=== PATIENT | female | born 1950 | race Caucasian/White ===

== ENCOUNTER → 2017-01-02 | Outpatient (CLI) | payer OTHER | LOC: FIMAGING 10:03 | PROVIDERS: ATTEND Family Medicine Geriatric Medicine | DX: Z13.820 Encounter for screening for osteoporosis (principal); Z78.0 Asymptomatic menopausal state; Z79.890 Hormone replacement therapy | CPT/HCPCS: G0202 ==

== ENCOUNTER → 2017-05-21 | Outpatient (CLI) | payer OTHER | LOC: FIMAGING 08:56 | PROVIDERS: ATTEND Orthopaedic Surgery | DX: Z01.818 Encounter for other preprocedural examination (principal); M17.12 Unilateral primary osteoarthritis, left knee ==

== ENCOUNTER 2017-06-03 09:12 | Observation (INO) | payer OTHER ==
[~2017-06-03 09:12] MED LIST: ROPIVACAINE 0.2% 80 MG, EPINEPHrine 0.2 MG, KETOROLAC TROMETHAMINE 30 MG in SYRINGE 0 ML IU ONE; TRANEXAMIC ACID 3,000 MG in NS 50 ML IRR ONE
--- NOTE | 2017-06-03 09:31 | PDHPUP ---
History & Physical Update H&P update statement: This history and physical update is based on an assessment of the patient which was completed after admission or registration (within 24 hours), but prior to the surgery/procedure. H&P update: H&P reviewed & patient examined, no change in patient's condition since H&P completed
[2017-06-03] MEDS ORDERED: TRANEXAMIC ACID 3,000 MG/50 ML BAG IRR ONE (09:36)
[2017-06-03] MEDS ORDERED: VANCOMYCIN 1 GM VIAL ONE (09:36)
[2017-06-03] MEDS ORDERED: ceFAZolin 2 GM/SWFI 2 GM/20 ML SYR IVP ONE (09:49)
[2017-06-03] MEDS ORDERED: FAMOTIDINE 20 MG TAB PO ONE (09:49)
[2017-06-03] MEDS ORDERED: DEXAMETHASONE 4 MG/ML VIAL IVP ONE (09:49)
[2017-06-03] MEDS ORDERED: ACETAMINOPHEN 325 MG TAB PO ONE (09:49)
[2017-06-03] MEDS ORDERED: LIDOCAINE 1% 2 ML INJ ID PRN (09:50)
[2017-06-03] MEDS ORDERED: LR 1,000 ML IV ONE (09:50)
[2017-06-03] MEDS ORDERED: LIDOCAINE 1% 2 ML INJ ONE (09:57)
[2017-06-03] MEDS ORDERED: PROPOFOL/EMULSION 500 MG/50 ML BOTTLE IV ONE (10:58)
[2017-06-03] MEDS ORDERED: BUPIVACAINE 0.5% 30 ML SDV ONE (10:59)
[2017-06-03] MEDS ORDERED: LIDOCAINE 2% 5 ML SDV ONE (11:00)
[2017-06-03] MEDS ORDERED: MIDAZOLAM 2 MG/2 ML VIAL ONE (11:03)
[2017-06-03] MEDS ORDERED: MIDAZOLAM 2 MG/2 ML VIAL IVP ONE (11:05)
--- NOTE | 2017-06-03 11:06 | PDANEPAE ---
ANE History of Present Illness left knee partial arthroplasty ANE Past Medical History - Cardiovascular History Hx Hypertension: No Hx Arrhythmias: No Hx Chest Pain: No Hx Coronary Artery / Peripheral Vascular Disease: No Hx CHF / Valvular Disease: No Hx Palpitations: No - Pulmonary History Hx COPD: No Hx Asthma/Reactive Airway Disease: No Hx Recent Upper Respiratory Infection: No Hx Oxygen in Use at Home: No Hx Sleep Apnea: No Sleep Apnea Screening Result - Last Documented: Negative - Neurologic History Hx Cerebrovascular Accident: No Hx Seizures: No Hx Dementia: No - Endocrine History Hx Diabetes: No Obesity: no - Renal History Hx Renal Disorders: No - Liver History Hx Hepatic Disorders: No - Neurological & Psychiatric Hx Hx Neurological and Psychiatric Disorders: No - Cancer History Hx Cancer: No - Congenital Disorder History Hx Congenital Disorders: No - GI History Hx Gastrointestinal Disorders: No - Other Health History Other Health History: wears glasses - Chronic Pain History Chronic Pain: Yes (left knee and right ankle) - Surgical History Prior Surgeries: 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 1983 breast reduction. 1988 detached retina repair- left eye. 1992 bilateral neuroma surgery to feet. 2006 hysteroscopy d&c ANE Review of Systems Review of systems is: negative Review of Systems: - Exercise capacity METS (RN): 4 METS ANE Patient History - Allergies Allergies/Adverse Reactions: tetracycline Allergy (Verified 05/04/17 10:13) Vomiting - Home Medications Home medications: home medication list seen and reviewed Home Medications: Estradiol [Estradiol 1 MG (*)] 1 mg PO DAILY 04/27/17 [Last Taken 05/27/17] Gabapentin [Neurontin 300 MG (*)] 300 mg PO DAILY PRN 04/27/17 [Last Taken 06/02 21:00] medroxyPROGESTERone [Provera 2.5 mg (*)] 2.5 mg PO MOFR 04/27/17 [Last Taken ] traZODone [traZODONE 50MG (*)] 75 mg PO HS 04/27/17 [Last Taken 06/02/17 21:00] - NPO status NPO Since - Liquids (Date): 06/03/17 NPO Since - Liquids (Time): 06:00 NPO Since - Solids (Date): 06/02/17 NPO Since - Solids (Time): 18:00 - Smoking Hx Smoking Status: Never smoked - Family Anes Hx Family Hx Anesthesia Complications: none ANE Labs/Vital Signs - Vital Signs Blood Pressure: 129/81 Heart Rate: 51 Respiratory Rate: 18 O2 Sat (%): 98 Height: 170.18 cm Weight: 63.049 kg ANE Physical Exam - Airway Neck exam: FROM Mallampati Score: Class 1 Mouth exam: normal dental/mouth exam - Pulmonary Pulmonary: no respiratory distress - Cardiovascular Cardiovascular: regular rate and rhythym - ASA Status ASA Status: I ANE Anesthesia Plan Anesthesia Plan: spinal Regional Anesthesia: single shot NB, adductor canal FNB
[2017-06-03] MEDS ORDERED: epHEDrine SULFATE 10 MG/ML SYR ONE ×3 (11:57→12:26)
[2017-06-03] MEDS ORDERED: ONDANSETRON DISINTEGRATING 4 MG TAB PO PRN (12:03)
[2017-06-03] MEDS ORDERED: DIPHENOXYLATE/ATROPINE LOMOTIL 1 TAB PO PRN (12:03)
[2017-06-03] MEDS ORDERED: LACTULOSE 20 GM/30 ML UDCUP PO PRN (12:03)
[2017-06-03] MEDS ORDERED: METOCLOPRAMIDE 10 MG/2 ML VIAL IVP PRN (12:03)
[2017-06-03] MEDS ORDERED: BISACODYL 10 MG SUPP PR PRN (12:03)
[2017-06-03] MEDS ORDERED: TEMAZEPAM 15 MG CAP PO PRN (12:03)
[2017-06-03] MEDS ORDERED: PROMETHAZINE HCL 25 MG/ML INJ IVP PRN (12:03)
[2017-06-03] MEDS ORDERED: CYCLOBENZAPRINE 10 MG TAB PO PRN (12:03)
[2017-06-03] MEDS ORDERED: MAGNESIUM HYDROXIDE 30 ML UDCUP PO PRN (12:03)
[2017-06-03] MEDS ORDERED: PROMETHAZINE HCL 25 MG SUPPR PR PRN (12:03)
[2017-06-03] MEDS ORDERED: POLYETHYLENE GLYCOL 3350 17 GM PKT PO PRN (12:03)
[2017-06-03] MEDS ORDERED: diphenhydrAMINE 25 MG CAP PO PRN (12:03)
[2017-06-03] MEDS ORDERED: ONDANSETRON 4 MG/2 ML VIAL IVP PRN ×2 (12:03→12:15)
[2017-06-03] MEDS ORDERED: GABAPENTIN 300 MG CAP PO PRN (12:04)
[2017-06-03] MEDS ORDERED: HYDROCODONE/APAP 5/325 TAB PO PRN (12:15)
[2017-06-03] MEDS ORDERED: ALBUTEROL 3 ML DEYVIAL IH PRN (12:15)
[2017-06-03] MEDS ORDERED: LR 500 ML IV PRN (12:15)
[2017-06-03] MEDS ORDERED: HYDROmorphONE/DILAUDID 1 MG/ML INJ IVP PRN (12:15)
[2017-06-03] MEDS ORDERED: NALOXONE HCL 0.4 MG/ML INJ IVP PRN (12:15)
[2017-06-03] MEDS ORDERED: ACETAMINOPHEN 500 MG TAB PO PRN (12:15)
[2017-06-03] MEDS ORDERED: fentaNYL 100 MCG/2 ML INJ IVP PRN (12:15)
[2017-06-03] MEDS ORDERED: OXYCODONE/APAP 5/325 TAB PO PRN (12:15)
--- NOTE | 2017-06-03 12:24 | POSTANESTH ---
Post Anesthetic Evaluation Cardiovascular Status: Normal, Stable Respiratory Status: Normal, Stable Level of Consciousness/Mental Status: Can Participate in Eval Pain Control: Adequate, Prn Tx Ordered Nausea/Vomiting Control: Adequate, Prn Tx Ordered Complications Possibly Related to Anesthesia: None Noted
[2017-06-03] MEDS ORDERED: LR 1,000 ML IV SCH (12:30)
--- NOTE | 2017-06-03 12:42 | POSTOPPROG ---
Post Op Note Date of Operation: 06/03/17 Surgeon: Victoria Garcia Roof Panel Hanger: devon garcia Anesthesia: Spinal, Other (Specify) (adductor canal block) Pre-op Diagnosis: left knee OA Post-op Diagnosis: saem Indication: left knee pain due to OA that failed conservative measures Procedure: L med mPL Findings: severe medial knee OA Inf/Abcess present in the surg proc area at time of surgery?: No EBL: 50-100
[2017-06-03] MEDS: ACETAMINOPHEN 325 MG TAB PO SCH ×2 (17:36→22:09)
[2017-06-03] MEDS: ceFAZolin 2 GM/DEXTROSE 100 ML IV SCH (17:37)
[2017-06-03] MEDS: oxyCODONE IR 5 MG TAB PO PRN ×2 (18:44→22:09)
[2017-06-03] MEDS: SENNOSIDES/DOCUSATE SODIUM TAB PO SCH (20:15)
[2017-06-03] MEDS: FAMOTIDINE 20 MG TAB PO SCH (20:16)
[2017-06-03] MEDS: ASPIRIN EC 81 MG TAB PO SCH (20:16)
[2017-06-03] MEDS ORDERED: traZODone 50 MG TAB PO SCH (21:00)
[2017-06-03 22:33] VITALS: O2SAT 95
[2017-06-04] MEDS: ceFAZolin 2 GM/DEXTROSE 100 ML IV SCH (03:16)
[2017-06-04 05:23] LABS: HEMATOCRIT 35.4 % (38.0-47.0); HEMOGLOBIN 11.6 g/dL (12.6-16.3)
[2017-06-04] MEDS: ACETAMINOPHEN 325 MG TAB PO SCH ×2 (05:44→11:05)
--- NOTE | 2017-06-04 06:19 | GOP ---
[f rep st] OPERATIVE REPORT DATE OF OPERATION: 06/03/2017 SURGEON: Chandrakant Rosario MD QUALITY SPECIALIST: PATEL Johnson ANESTHESIA: Spinal. PREOPERATIVE DIAGNOSIS: Left knee osteoarthritis. POSTOPERATIVE DIAGNOSIS: Left knee osteoarthritis. PROCEDURE PERFORMED: Left medial compartment partial knee replacement with computer navigation and robotic assist. FINDINGS: ESTIMATED BLOOD LOSS: 30 cc. INDICATIONS: This is a 66 year old female with progressive pain of the left knee unresponsive to conservative care. Risks and benefits of surgical intervention were explained in detail. DESCRIPTION OF PROCEDURE: The patient was brought to the operating room and placed on the table in supine position. Spinal anesthesia was induced without difficulty. A pneumatic tourniquet was applied about the left proximal thigh and the leg was prepped and draped in sterile fashion. Attention was turned first to the distal aspect of the left femur. At 3 cm proximal to the lateral rise of the femur, 2 percutaneous half pins were placed for fixation of the femoral array. In a similar fashion, 2 pins were placed anterolateral on the tibia for fixation of the tibial array. External land marking and registration of the hip center was performed without difficulty. After exsanguination by elevation, the tourniquet was inflated to 250 mmHg. Incision was made from the tibial tuberosity to the superior pole of the patella. Dissection was carried out through the subcutaneous tissue to the deep fascia using Bovie electrocautery for hemostasis. Medial parapatellar arthrotomy was carried out to the superior pole of the patella. The medial collateral ligament was elevated and the infrapatellar fat pad was resected. Internal femoral and tibial registration was carried out without difficulty and the femoral and tibial checkpoints were placed and verified for accuracy. Attention was turned to the femur. The foot print for the size 4 femoral component was cut with the 6 mm bur using the [employer] robotic system and verified for accuracy against the CT based plan. The hole was cut for the femoral post. In a similar fashion, the 6 mm bur was used to cut the foot print for the size 4 tibial component using the [employer] system and verified for accuracy against the CT based plan. Attention was turned to the posterior aspect of the knee and remnants of the medial meniscus were excised. The posterior capsule was injected with ropivacaine, epinephrine and Toradol. Trial reduction was carried out and there was excellent range of motion, alignment and stability using the size 4 femoral component and the size 4 tibial component, 4 x 8 mm polyethylene. All trials were then removed. The joint was thoroughly irrigated and carefully dried. One package of cement and 1 gram of vancomycin were mixed in the vacuum mixer and placed on the fixation surfaces of all components. The components were implanted and all excess cement was thoroughly removed. Implant placement was verified against the CT view plan and found to be excellent. The tourniquet was deflated and all bleeders were coagulated. The wound was thoroughly irrigated and closed using interrupted sutures of 2-0 Vicryl for the joint capsule. The subcu was closed with 3-0 Vicryl and the skin with 4-0 Monocryl. Dermabond and Steri-Strips were applied, followed by a compressive dressing. The patient was then moved from the operating room to the recovery room in good condition, having tolerated the procedure well. CASE CLASSIFICATION: Clean. /[id number]/MODL MTDD
[2017-06-04 07:48] VITALS: BP 113/70; PULSE 58; RESP 16; TEMP 98.2
[2017-06-04] MEDS: oxyCODONE IR 5 MG TAB PO PRN ×2 (07:55→11:06)
[2017-06-04] MEDS: SENNOSIDES/DOCUSATE SODIUM TAB PO SCH (08:40)
[2017-06-04] MEDS: FAMOTIDINE 20 MG TAB PO SCH (08:40)
[2017-06-04] MEDS: ASPIRIN EC 81 MG TAB PO SCH (08:40)
--- NOTE | 2017-06-04 11:49 | ASDISCHSUM ---
Discharge Information Plan Status:Home with No Needs Medically Cleared to Leave:06/03/2017 Discharge Date:06/04/2017 11:10 AM CM D/C Disposition:Home, Routine, Self-Care ADT D/C Disposition:Home, Routine, Self-Care Projected Discharge Date:06/04/2017 11:10 AM Transportation at D/C:Family Discharge Delay Reason: Follow-Up Date:06/04/2017 11:10 AM Discharge Slot: Final Diagnosis: Placement Information Patient Contact Information Contact Name:DONNA Relationship: Address:[address] Work Phone: City:[facility] Phone: [facility]/Zip Code:[place] [address] Email: Financial Information Financial Class: Primary Plan Desc:MEDICARE OUTPATIENT Primary Plan Number:[id number] Secondary Plan Desc:SEBASTIÁN Secondary Plan Number:[id number] Assessment Information Intervention Information Intervention Type:*Incorrect Registration Date of Service:06/03/2017 01:33 PM Patient Type:Inpatient Staff Member:ANA Daniel Courtney Hours: Discipline: Severity: Comment:
--- NOTE | 2017-06-04 20:35 | SOAPPROG ---
SOAP Progress Note Assessment/Plan: Assessment: Emperatriz is doing well s/p L med MPL 1) pain management: pain is well controlled on oral pain meds.. 2) VTE ppx: recommend aspirin 81 mg BID for 4 weeks 3) d/c to home once PT releases patient Plan: 06/04/17 20:33 Subjective: Emperatriz is doing well today ,denies SOB ,chest pain and N/V. Objective: Vital Signs Temp Pulse Resp BP Pulse Ox 36.8 C 58 L 16 113/70 95 06/04/17 07:47 06/04/17 07:47 06/04/17 07:47 06/04/17 07:47 06/04/17 07:47 Laboratory Results 06/04/17 04:49 06/03/17 06/04/17 06/05/17 05:59 05:59 05:59 Intake Total 1700 800 Output Total 900 150 Balance 800 650 LLE; incision is clean and dry, NVI, +pf/df ICD10 Worksheet Patient Problems: Problems Problem Status Onset Primary localized osteoarthritis of left knee Acute
--- NOTE | 2017-06-08 20:54 | GDS ---
[f rep st] DISCHARGE SUMMARY ADMISSION DIAGNOSIS: Left knee osteoarthritis. DISCHARGE DIAGNOSIS: Left knee osteoarthritis. PROCEDURE: Left partial knee arthroplasty, medial compartment, robot assisted. VTE PROPHYLAXIS: Recommend aspirin 81 mg twice daily for 4 weeks. BRIEF DESCRIPTION OF HOSPITAL STAY: Patient was admitted for an elective joint arthroplasty. The pa rajwinder tolerated the procedure well and has passed physical therapy. The patient was given appropriat e antibiotic prophylaxis and venous thromboembolism prophylaxis. The patient's pain was well control led on oral pain medication, patient was holding down food, and had urinated. Decision was made to d ischarge the patient. The patient was given post-operative prescriptions pre-operatively. PLAN: Follow up as scheduled, Dr. Rosario's office on 06/25 at 3:15 p.m. /[id number]/MODL
== END 2017-06-04 11:10 | disposition home or self-care (01) ==
LOC: F3N 09:12 → INTOOBSV 09:12 → F3N 13:52
PROVIDERS: ADMIT Orthopaedic Surgery; ATTEND Orthopaedic Surgery
PROC: 8E0YXBG Computer Assisted Procedure of Lower Extremity, With Computerized Tomography (ICD-10-PCS; principal; 2017-06-03 13:15)
PROC: 8E0Y0CZ Robotic Assisted Procedure of Lower Extremity, Open Approach (ICD-10-PCS; principal; 2017-06-03 13:15)
PROC: 0SRD0JZ Replacement of Left Knee Joint with Synthetic Substitute, Open Approach (ICD-10-PCS; principal; 2017-06-03 13:15)
DX: M17.12 Unilateral primary osteoarthritis, left knee (principal)
CPT/HCPCS: 27446; 73560; 97110; 97116; 97161; 97165; C1713; C1776; G8978; G8979; G8987; G8988; G8989; J0171; J0690; J1100; J1885; J2250; J2704; J2795; J3370

== ENCOUNTER → 2017-11-16 | Outpatient (CLI) | payer OTHER | LOC: FIMAGING 12:30 | PROVIDERS: ATTEND Family Medicine Geriatric Medicine | DX: R05 Cough (principal) ==